=== PATIENT | female | born 1965 | race Caucasian/White ===

== ENCOUNTER → 2017-04-22 | Outpatient (CLI) | payer BC ==
[~2017-04-22] MED LIST: ADIPEX-P37.5 MG PO; D3-5050000 IU PO; HORMONE CREAM TOP; PRILOTC PO; PROMETRIUM100 MG PO; THE MEDICINE S200 M2 PO; THE MEDICINE S300 M1 PO; ZESTRIL30 MG PO; [UNRECOGNIZED DRUG - OTHER] PO; [UNRECOGNIZED DRUG - OTHER] PO
== END ==
LOC: MC.RAD 08:00
DX: Z12.31 Encounter for screening mammogram for malignant neoplasm of breast (principal)

== ENCOUNTER → 2020-05-05 | Outpatient (CLI) | payer BC | LOC: MC.RAD 09:51 | DX: Z12.31 Encounter for screening mammogram for malignant neoplasm of breast (principal) ==

== ENCOUNTER → 2021-06-11 | Outpatient (CLI) | payer BC | LOC: MC.RAD 05-08 07:45 | DX: Z12.31 Encounter for screening mammogram for malignant neoplasm of breast (principal) ==